=== PATIENT | male | born 1950 | race Caucasian/White ===

== ENCOUNTER 2017-08-30 08:58 | Emergency (ER) | payer MEDICARE, BC ==
--- NOTE | 2017-08-30 09:40 | RAD ---
Right wrist, 3 views, 08/30/2017: History: Fall, pain There is a comminuted fracture of the distal right radius with intra-articular extension. There is impaction at the fracture site with mild volar displacement of a moderate-sized distal fracture fragment. The carpal bones appear intact. No other fracture is identified. There is moderate soft tissue swelling. IMPRESSION: Comminuted, impacted distal radial fracture.
--- NOTE | 2017-08-30 09:40 | RAD ---
Right hand, 3 views, 08/30/2017: History: Fall, pain There is a distal radial fracture described on the wrist radiographs. No additional fracture or dislocation is identified.
[2017-08-30] MEDS ORDERED: DIPHTH,PERTUSS(ACELL),TET TOX 0.5 ML DISP.SYRIN. VAX IM ONE (10:00)
--- NOTE | 2017-08-30 10:00 | PHYS DOC ---
General Chief Complaint: WRIST PAIN Stated Complaint: FALL Time Seen by MD: 09:10 Source: patient Exam Limitations: no limitations Problems: History of Present Illness Initial Comments Patient is a 67-year-old male who comes complaining of fall injury. Patient states immediately prior to arrival she slipped on the ice and fell to his outstretched right hand which is his dominant hand. He states that he felt severe pain and has been unable to move his wrist he does have full movement of his fingers and a superficial abrasion at the medial aspect of his fifth phalanx. Tetanus status is not up-to-date he denies numbness tingling weakness or radiating symptoms in the extremity. He did refuse pain medications in the emergency department so he could preserve his ability to drive upon discharge. He denies other injuries suffered from the fall specifically no head injury headache neck pain or loss of consciousness Occurred: just prior to arrival Severity: severe Injuries/Pain Location: upper extremity Context: slipped Loss of Consciousness: no loss of consciousness Modifying Factors: worse with jarring, worse with movement, improves with rest Associated Symptoms: other Allergies: Coded Allergies: milk (Verified Allergy, Unknown, 08/30/17) Past Medical History Medical History: heart disease Surgical History: other (cardiac stent) Social History Smoker: non-smoker Alcohol: none Drugs: none Review of Systems Constitutional: no symptoms reported Eyes: no symptoms reported Respiratory: no symptoms reported Cardiovascular: no symptoms reported Musculoskeletal: see HPI Skin: see HPI Psychiatric/Neurological: see HPI Physical Exam General Appearance: WD/WN, no apparent distress Head: no evidence of injury Ears, Nose, Mouth, Throat: hearing grossly normal, no evidence of ENT injury, no dental injury Neck: non-tender, full range of motion Cardiovascular/Respiratory: normal peripheral pulses, no respiratory distress Back: no CVA tenderness, no vertebral tenderness Extremities: other (right wrist is swollen with exquisite bony tenderness and obvious deformity, pulses are intact and the patient has full range of motion with all fingers range of motion at the wrist not attempted due to obvious fracture. There is a superficial abrasion at the medial aspect of the right phalanx) Neurologic/Psychiatric: hospice/home health aide II-XII nml as tested, no motor/sensory deficits, alert, normal mood/affect, oriented x 3 Skin: warm/dry [place] Coma Score Best Eye Response: (4) open spontaneously Best Verbal Response: (5) oriented Best Motor Response: (6) obeys commands [place] Total: 15 Orders, Labs, Meds 0945: I discussed the patient with on-call orthopedic surgeon Dr. Pang. After review the films and the knowledge that it is his dominant hand it is her feeling that the patient will need surgery. She is in the clinic for a half day today and agrees to see the patient if he can be to her office by 11:30 AM. I got off the phone with Dr. Pang and called her paleontology teacher and advised them that the patient would be coming and would arrive by 11:30 AM, if there was an issue with him getting there on time I gave her the patient's full demographics including first and last name date of as well as his cell phone # [phone] that she could call and reschedule with him. Dr. Pang did request a sugar tong splint be placed ending at the MCP joints to preserve range of motion of the phalanges. The patient is agreeable and will have a family member drive him, he continues to refuse pain medications. Impressions: Comminuted impacted distal right radius fracture Fall injury Abrasion Tetanus status needs to be addressed Departure Time of Disposition: 09:56 Disposition: 01 HOME, SELF-CARE Diagnosis: comminuted impacted R distal radius fracture, Fall Condition: STABLE Additional Instructions: As discussed take your discharge paperwork and drive directly to Dr. Pang' s office: [address] [place] [address] [address] Their office phone number is [phone]. Pick the option for scheduling an appointment to be able to speak with a live person if you have trouble getting air or find that he will be running late. Tetanus status was not addressed so patient would arrive in time for Dr. Pang's evaluation. Return to ED with new or changing symptoms. AMY HULL DO Aug 30, 2017 10:00
[2017-08-30 10:09] VITALS: BP 126/77
[2017-08-30] MEDS ORDERED: HYDR-971 PO (18:27)
== END 2017-08-30 10:09 | disposition home or self-care (01) ==
LOC: ER 08:58
DX: S52.501A Unspecified fracture of the lower end of right radius, initial encounter for closed fracture (principal); S60.416A Abrasion of right little finger, initial encounter; Z91.011 Allergy to milk products; W00.0XXA Fall on same level due to ice and snow, initial encounter; Y93.89 Activity, other specified; Y99.8 Other external cause status; Y92.89 Other specified places as the place of occurrence of the external cause
CPT/HCPCS: 29125; 73110; 73130; 99284

== ENCOUNTER → 2018-08-28 | Outpatient (CLI) | payer MEDICARE, BC ==
[~2018-08-28] MED LIST: HYDR-3165 PO
[2018-08-28 09:12] LABS: ALBUMIN/GLOBULIN RATIO 1.2 (1.0-1.7); CALCIUM 8.8 mg/dL (8.5-10.1); CREATININE 1.4 mg/dL (0.7-1.3); GFR 50.2; POTASSIUM 4.3 mmol/L (3.5-5.1); TOTAL BILIRUBIN 0.6 mg/dL (0.2-1.0); TOTAL PROTEIN 7.4 g/dL (6.4-8.2)
== END | disposition home or self-care (01) ==
LOC: LAB 08:00
PROVIDERS: ATTEND Internal Medicine Cardiovascular Disease
DX: E78.00 Pure hypercholesterolemia, unspecified (principal)
CPT/HCPCS: 36415; 80053; 80061

== ENCOUNTER 2021-07-01 17:11 | Inpatient (IN) | payer MEDICARE ==
[~2021-07-01] VITALS: Ht 180.3 cm; Wt 80.5 kg
[2021-07-01] MEDS ORDERED: DEXAMETHASONE SOD PHOS 10 MG/ML VIAL. IVP ONE (17:30)
--- NOTE | 2021-07-01 17:35 | EKG ---
[address] [address] Test Date: 2021-07-01 Test Time: 17:30:36 Pat Name: DEMI ANDINO Department: Room: Gender: M Business Info Consultant: MORRO : 1950 Requested By: GAYLA GRAHAM Order Number: [id number] Reading MD: Olegario Rudolph Measurements Intervals [place] Rate: 93 P: 0 AL: 150 QRS: -1 QRSD: 88 T: 28 QT: 336 QTc: 420 Interpretive Statements SINUS RHYTHM LEFTWARD AXIS QRS(T) CONTOUR ABNORMALITY CONSISTENT WITH INFERIOR INFARCT PROBABLY OLD ABNORMAL ECG Electronically Signed On 07-02-2021 7:14:00 BLOW MACHINE [employer] by Olegario Rudolph
[2021-07-01] MEDS ORDERED: IV NORMAL SALINE 500ML 500 ML IV ONE (18:00)
--- NOTE | 2021-07-01 18:03 | PHYS DOC ---
Past History Past Medical History: CAD, Hypertension, AL (GAYLA GRAHAM APRN) Past Surgical History: Angioplasty, Other (GAYLA GRAHAM APRN) Smoking: Quit Greater Than 1 Year Alcohol Use: None Drug Use: None (GAYLA GRAHAM APRN) General Adult EDM: Chief Complaint: FEVER HPI: HPI: Patient is a 71-year-old male that presents today with tremors, fever, and generalized body aches since Saturday. Patient states he started off on Saturday with fever and body aches he states that he has been treating his fever at home with Motrin and his fever has ranged anywhere from 99-101, he states that on Saturday he started having the slight right arm tremors and he presents today because his fever was unbroken with Motrin at home. Patient has not had his Covid vaccine. Patient denies being around anybody that is been sick as well (GAYLA GRAHAM APRN) Review of Systems: Review of Systems: Constitutional: fever or chills Eyes: Denies change in visual acuity HENT: Denies nasal congestion or sore throat Respiratory: cough; denies shortness of breath Cardiovascular: Denies chest pain or edema GI: Denies abdominal pain, nausea, vomiting, bloody stools or diarrhea : Denies dysuria Musculoskeletal: Generalized body aches Integument: Denies rash Neurologic: Denies headache, focal weakness or sensory changes Endocrine: Denies polyuria or polydipsia Lymphatic: Denies swollen glands Psychiatric: Denies depression or anxiety (GAYLA GRAHAM APRN) Current Medications: Current Meds: Current Medications Medications (Trade) Dose Ordered Sig/Neelam Start Time Stop Time Status Last Admin Dose Admin Dexamethasone Sodium Phosphate (Decadron) 10 mg 1X ONCE 07/01/21 17:30 07/01/21 17:36 DC (GAYLA GRAHAM APRN) Allergies: Allergies: Allergies Coded Allergies Type Severity Reaction Last Updated Verified milk Allergy Unknown 08/30/17 Yes (GAYLA GRAHAM APRN) Physical Exam: PE: Constitutional: Well developed, well nourished, moderate distress HENT: Normocephalic, atraumatic, bilateral external ears normal, oropharynx dry, no oral exudates, nose normal. [] Eyes: PERRLA, EOMI, conjunctiva normal, no discharge. [] Neck: Normal range of motion, no tenderness, supple, no stridor. [] Cardiovascular:Heart rate regular rhythm, no murmur [] Lungs & Thorax: Bilateral breath sounds clear to auscultation [] Abdomen: Bowel sounds normal, soft, no tenderness, no masses, no pulsatile masses. [] Skin: Warm, moist, no erythema, no rash. [] Back: No tenderness, no CVA tenderness. [] Extremities: No tenderness, no cyanosis, no clubbing, ROM intact, no edema. [] Neurologic: Alert and oriented X 3, normal motor function, normal sensory functi on, no focal deficits noted, slight tremor noted on the right arm and the right neck area Psychologic: Affect normal, judgement normal, mood normal. [] (GAYLA GRAHAM APRN) Current Patient Data: Labs: Laboratory Tests Test 07/01/21 17:53 07/01/21 17:58 White Blood Count 2.6 x10^3/uL Red Blood Count 4.20 x10^6/uL Hemoglobin 13.4 g/dL Hematocrit 40.7 % Mean Corpuscular Volume 97 fL Mean Corpuscular Hemoglobin 32 pg Mean Corpuscular Hemoglobin Concent 33 g/dL Red Cell Distribution Width 13.1 % Platelet Count 93 x10^3/uL Neutrophils (%) (Auto) 46 % Lymphocytes (%) (Auto) 45 % Monocytes (%) (Auto) 8 % Eosinophils (%) (Auto) 0 % Basophils (%) (Auto) 0 % Neutrophils # (Auto) 1.2 x10^3uL Lymphocytes # (Auto) 1.2 x10^3/uL Monocytes # (Auto) 0.2 x10^3/uL Eosinophils # (Auto) 0.0 x10^3/uL Basophils # (Auto) 0.0 x10^3/uL Sodium Level 144 mmol/L Potassium Level 4.2 mmol/L Chloride Level 108 mmol/L Carbon Dioxide Level 27 mmol/L Anion Gap 9 Blood Urea Nitrogen 26 mg/dL Creatinine 1.7 mg/dL Estimated GFR (Cockcroft-Gault) 39.8 BUN/Creatinine Ratio 15 Glucose Level 134 mg/dL Lactic Acid Level 0.8 mmol/L Calcium Level 8.1 mg/dL Total Bilirubin 0.3 mg/dL Aspartate Amino Transf (AST/SGOT) 45 U/L Alanine Aminotransferase (ALT/SGPT) 45 U/L Alkaline Phosphatase 69 U/L Total Protein 6.6 g/dL Albumin 3.4 g/dL Albumin/Globulin Ratio 1.1 Influenza Type A (Rapid) Negative Influenza Type B (Rapid) Negative SARS-CoV-2 Antigen (Rapid) Positive Current Medications Medications (Trade) Dose Ordered Sig/Neelam Route PRN Reason Start Time Stop Time Status Last Admin Dose Admin Dexamethasone Sodium Phosphate (Decadron) 10 mg 1X ONCE IVP 07/01/21 17:30 07/01/21 17:36 DC 07/01/21 18:06 Sodium Chloride 500 ml @ 0 mls/hr 1X ONCE IV 07/01/21 18:00 07/01/21 18:01 DC 07/01/21 18:06 (GAYLA GRAHAM APRN) EKG: EKG: EKG done at [address] Jones at 1732 patient has sinus rhythm noted on his EKG old inferior infarct noted NH interval is 150 ms with a QTC interval of 336 ms no STEMI noted [] (GAYLA GRAHAM CHICKEN HATCHERY HELPER) Radiology/Procedures: Radiology/Procedures: REASON: Fever and SOA PROCEDURE: CHEST AP ONLY AP chest. HISTORY: Fever, short of air AP view was taken of the chest. There is no pleural effusion. There are no confluent infiltrates. Heart is normal in size. IMPRESSION: 1. No acute infiltrates. Electronically signed by: Placido Cooney MD (07/01/2021 6:13 PM) [facility] [] (GAYLA GRAHAM CHICKEN HATCHERY HELPER) Heart Score: C/O Chest Pain: N/A Risk Factors: Risk Factors: DM, Current or recent (<one month) smoker, HTN, HLP, family history of CAD, obesity. Risk Scores: Score 0 - 3: 2.5% MACE over next 6 weeks - Discharge Home Score 4 - 6: 20.3% MACE over next 6 weeks - Admit for Clinical Observation Score 7 - 10: 72.7% MACE over next 6 weeks - Early Invasive Strategies (GAYLA GRAHAM APRN) Course & Med Decision Making: Course & Med Decision Making Pertinent Labs and Imaging studies reviewed. (See chart for details) [address] Jacobson regarding this patient he is agreeable to admission, will orderRemdesivir per Dr. Espino's recommendations. Patient is agreeable to plan (GAYLA GRAHAM APRN) Dragon Disclaimer: Dragon Disclaimer: This electronic medical record was generated, in whole or in part, using a voice recognition dictation system. (GAYLA GRAHAM APRN) Departure Departure: Impression: Primary Impression: Respiratory distress, acute Additional Impression: COVID-19 Disposition: ADMITTED INPATIENT Condition: GUARDED Referrals: PIYUSH MONGE MD (PCP) Scripts Methylprednisolone (MEDROL) 4 Mg Tab.ds.pk 1 PKG PO UD for sob, #1 PKG Prov: PIYUSH MONGE MD 07/06/21 Dragon Disclaimer This chart was dictated in whole or in part using Voice Recognition software in a busy, high-work load, and often noisy Emergency Department environment. It may contain unintended and wholly unrecognized errors or omissions. (SCOTT JO MD) Dragon Disclaimer This chart was dictated in whole or in part using Voice Recognition software in a busy, high-work load, and often noisy Emergency Department environment. It may contain unintended and wholly unrecognized errors or omissions. (GAYLA GRAHAM APRN) Dragon Disclaimer This chart was dictated in whole or in part using Voice Recognition software in a busy, high-work load, and often noisy Emergency Department environment. It may contain unintended and wholly unrecognized errors or omissions. (SCOTT JO MD) Dragon Disclaimer This chart was dictated in whole or in part using Voice Recognition software in a busy, high-work load, and often noisy Emergency Department environment. It may contain unintended and wholly unrecognized errors or omissions. (GAYLA GRAHAM APRN) Dragon Disclaimer This chart was dictated in whole or in part using Voice Recognition software in a busy, high-work load, and often noisy Emergency Department environment. It may contain unintended and wholly unrecognized errors or omissions. (SCOTT JO MD) Dragon Disclaimer This chart was dictated in whole or in part using Voice Recognition software in a busy, high-work load, and often noisy Emergency Department environment. It may contain unintended and wholly unrecognized errors or omissions. (GAYLA GRAHAM APRN) Attending Signature Attending Signature I have participated in the care of this patient and I have reviewed and agree with all pertinent clinical information above including history, exam, and recommendations. (SCOTT JO MD) Attending Signature I have participated in the care of this patient and I have reviewed and agree with all pertinent clinical information above including history, exam, and recommendations. (GAYLA GRAHAM APRN) GAYLA GRAHAM APRN Jul 01, 2021 18:02 SCOTT JO MD Jul 02, 2021 21:25
--- NOTE | 2021-07-01 18:15 | RAD ---
AP chest. HISTORY: Fever, short of air AP view was taken of the chest. There is no pleural effusion. There are no confluent infiltrates. Hea rt is normal in size. IMPRESSION: 1. No acute infiltrates. Electronically signed by: Placido Cooney MD (07/01/2021 6:13 PM) [facility]
[2021-07-01 18:25] LABS: BASO % 0 % (0-3); EOS % 0 % (0-3); HEMATOCRIT 40.7 % (39.0-53.0); HEMOGLOBIN 13.4 g/dL (13.0-17.5); LYMPH # 1.2 x10^3/uL (1.0-4.8); LYMPH % 45 % (24-48); MEAN CORPUSCULAR HEMOGLOBIN 32 pg (25-35); MEAN CORPUSCULAR HGB CONC 33 g/dL (31-37); MEAN CORPUSCULAR VOLUME 97 fL (79-100); MONO # 0.2 x10^3/uL (0.0-1.1); MONO % 8 % (0-9); NEUT # 1.2 x10^3uL (1.8-7.7); NEUT % 46 % (31-73); PLATELET COUNT 93 x10^3/uL (140-400); RED CELL DISTRIBUTION WIDTH 13.1 % (11.5-14.5); WHITE BLOOD COUNT 2.6 x10^3/uL (4.0-11.0)
[2021-07-01 18:39] LABS: CALCIUM 8.1 mg/dL (8.5-10.1); CREATININE 1.7 mg/dL (0.7-1.3); GFR 39.8; POTASSIUM 4.2 mmol/L (3.5-5.1)
[2021-07-01 18:44] LABS: ALBUMIN 3.4 g/dL (3.4-5.0); ALBUMIN/GLOBULIN RATIO 1.1 (1.0-1.7); TOTAL BILIRUBIN 0.3 mg/dL (0.2-1.0); TOTAL PROTEIN 6.6 g/dL (6.4-8.2)
[2021-07-01 18:45] LABS: INFLUENZA A PATIENT NEGATIVE (NEGATIVE); INFLUENZA B PATIENT NEGATIVE (NEGATIVE)
[2021-07-01] MEDS ORDERED: ONDANSETRON PF 4 MG/2 ML VIAL. IVP PRN (19:30)
[2021-07-01] MEDS ORDERED: ACETAMINOPHEN 325 MG TABLET PO PRN (19:30)
[2021-07-01 20:30] VITALS: BP 116/69
[2021-07-01] MEDS ORDERED: CARV6.253 PO (21:01)
[2021-07-01] MEDS ORDERED: ASPI-889 PO (21:01)
[2021-07-01] MEDS ORDERED: LISI2.5T12 PO (21:01)
[2021-07-01] MEDS ORDERED: ROSU20TA28 PO (21:01)
[2021-07-01] MEDS ORDERED: ACETAMINOPHEN 500 MG TABLET PO PRN (21:15)
[2021-07-01] MEDS ORDERED: IBUPROFEN 600 MG TABLET. PO PRN (21:15)
[2021-07-01] MEDS ORDERED: AZITHROMYCIN 500 MG in IV NORMAL SALINE 250ML 250 ML IV ONE (22:00)
[2021-07-02 00:15] VITALS: BP 128/74
[2021-07-02 06:15] VITALS: BP 122/77
[2021-07-02 07:40] LABS: ALBUMIN/GLOBULIN RATIO 0.8 (1.0-1.7); CALCIUM 7.6 mg/dL (8.5-10.1); CREATININE 1.3 mg/dL (0.7-1.3); GFR 54.3; POTASSIUM 4.1 mmol/L (3.5-5.1); TOTAL BILIRUBIN 0.3 mg/dL (0.2-1.0); TOTAL PROTEIN 6.7 g/dL (6.4-8.2)
[2021-07-02] MEDS: AZITHROMYCIN 250 MG TABLET. PO SCH (08:06)
[2021-07-02] MEDS: LISINOPRIL 5 MG TABLET. PO SCH (08:06)
[2021-07-02] MEDS: ASPIRIN ENTERIC COATED 81 MG TABLET.DR. PO SCH (08:06)
[2021-07-02] MEDS: DEXAMETHASONE SOD PHOS 4 MG/ML VIAL. IVP SCH (08:07)
[2021-07-02 11:52] VITALS: BP 114/66
[2021-07-02] MEDS ORDERED: REMDESIVIR LOAD in IV NORMAL SALINE 250ML TV IV ONE (13:00)
[2021-07-02 16:03] VITALS: BP 112/63
--- NOTE | 2021-07-02 18:23 | HP ---
DATE OF SERVICE: 07/02/2021 ADMIT DATE: 07/01/2021 HISTORY OF PRESENT ILLNESS: A 71-year-old male who for the past 4-5 days has been feeling ill, noting that he has been having this temperature for 2-3 days, finally came in through the Emergency Room and was spiking temperatures up to 102. His situation demonstrated that the patient had a problem with a positive COVID test and he was admitted for a COVID infection. He did drop down into the upper 80s on room air and started on remdesivir, Decadron and some Lovenox. He was admitted for acute respiratory failure secondary to COVID-19. PAST MEDICAL HISTORY: Includes that of tonsillectomy, heart attack, hypertension, history of smoking. Pneumococcal vaccination has been refused. He also refused COVID vaccination. FAMILY HISTORY: Positive for suicide. ALLERGIES: ADVERSE REACTION TO MILK. SOCIAL HISTORY: The patient has a [id number] history of smoking and occasional alcohol use. The patient, however, denies hard drug use. The patient is a FULL CODE. REVIEW OF SYSTEMS: The patient denies any headaches, visual changes, blurred vision, double vision. Denies any melena, hematochezia or hematemesis and neurologically baseline for him. He does have some shortness of breath, however, and of course has fever and chills as indicated. The patient denies any problem with bowels or bladder. PHYSICAL EXAMINATION: GENERAL: A pleasant white male, in moderate amount of distress. VITAL SIGNS: Blood pressure is that of 128/70, respiratory rate 36, pulse 90, temperature, presently he was up to 99.1; 88 on room air, 2 liters at 91; temperature as indicated. HEENT: The patient's head was atraumatic, normocephalic. Eyes: PERRLA without jaundice. The mouth and throat were normal. NECK: Supple without JVD or thyromegaly. LUNGS: Diminished throughout, poor movement of air. CARDIOVASCULAR: Regular sinus rhythm, S1, S2, without murmur, rub, thrill, or extra heart sounds. ABDOMEN: Soft, nontender, no rebounding or guarding. Positive bowel sounds. No hepatosplenomegaly was noted. EXTREMITIES: Without clubbing, cyanosis, nor edema. NEUROLOGIC: The patient was alert and oriented x 3. Speech fluent, spontaneous, appropriate. Cranial nerves 2-12 grossly intact. The patient said he has been feeling better since he got the remdesivir, Zithromax and Lovenox. LABORATORY DATA: Demonstrated the positive SARS. White count down to 2.6, hemoglobin and hematocrit 13 and 40. Chemistries, 138, 4.1, BUN and creatinine 22 and 1.3, improved from 26 and 1.7, protein down to 3. DIAGNOSTIC DATA: Chest x-ray was unremarkable. IMPRESSION AND PLAN: Acute respiratory failure secondary to SARS COVID-19, tobacco abuse, acute renal failure 3B, moderate protein malnutrition. The patient will continue on present drug regimen as discussed above and will be monitored carefully. Make further evaluation on him per those results and will make adjustments accordingly. IFRAH DR: AURORA/ligia TID: [id number]
[2021-07-02 19:00] VITALS: BP 118/69
[2021-07-02] MEDS: CARVEDILOL 6.25 MG TABLET PO SCH (21:34)
[2021-07-02] MEDS: ATORVASTATIN CALCIUM 20 MG TABLET PO SCH (21:35)
[2021-07-02] MEDS: ENOXAPARIN 30 MG/0.3 ML SYRINGE. SQ SCH (21:35)
[2021-07-02 23:36] VITALS: BP 122/64
[2021-07-03 05:51] VITALS: BP 131/77
[2021-07-03] MEDS: DEXAMETHASONE SOD PHOS 4 MG/ML VIAL. IVP SCH (08:01)
[2021-07-03] MEDS: AZITHROMYCIN 250 MG TABLET. PO SCH (08:02)
[2021-07-03] MEDS: ENOXAPARIN 30 MG/0.3 ML SYRINGE. SQ SCH (08:02)
[2021-07-03] MEDS: ASPIRIN ENTERIC COATED 81 MG TABLET.DR. PO SCH (08:02)
[2021-07-03] MEDS: LISINOPRIL 5 MG TABLET. PO SCH (08:04)
[2021-07-03 10:45] VITALS: BP 130/75
--- NOTE | 2021-07-03 11:18 | PN ---
DATE: 07/03/2021 SUBJECTIVE: A 71-year-old gentleman in with COVID-19 pneumonia. The patient is doing somewhat better. Says he feels a little bit stronger. The patient is breathing a little bit easier, still on oxygen, remdesivir treatments. OBJECTIVE: VITAL SIGNS: The patient's blood pressure 130/70, respiratory rate 18, pulse 70, afebrile, 2.5 liters of nasal cannula at 94. GENERAL: The patient otherwise alert and oriented. LUNGS: Diminished throughout, but moving along fairly well. CARDIOVASCULAR: Regular sinus rhythm. ABDOMEN: Soft, nontender, no rebound or guarding. Positive bowel sounds, no hepatosplenomegaly. The patient is making good progress overall and continued to be monitored carefully on his situation here. Otherwise, he continues to make good progress on the situation with his COVID-19 pneumonia. IMPRESSION: COVID-19 pneumonia, acute respiratory failure. Continue on present drug regimen. Acute renal failure, stage IIIB. Moderate protein malnutrition. PLAN: We will continue present drug regimen and make adjustments accordingly. BURAK DR: Megan TID: [id number]
[2021-07-03 12:38] LABS: BASO % 0 % (0-3); EOS % 0 % (0-3); HEMATOCRIT 40.7 % (39.0-53.0); HEMOGLOBIN 13.6 g/dL (13.0-17.5); LYMPH % 20 % (24-48); MEAN CORPUSCULAR HEMOGLOBIN 32 pg (25-35); MEAN CORPUSCULAR HGB CONC 33 g/dL (31-37); MEAN CORPUSCULAR VOLUME 96 fL (79-100); MONO # 0.2 x10^3/uL (0.0-1.1); MONO % 4 % (0-9); NEUT # 3.9 x10^3uL (1.8-7.7); NEUT % 75 % (31-73); PLATELET COUNT 97 x10^3/uL (140-400); RED BLOOD COUNT 4.26 x10^6/uL (4.30-5.70); RED CELL DISTRIBUTION WIDTH 13.3 % (11.5-14.5); WHITE BLOOD COUNT 5.2 x10^3/uL (4.0-11.0)
[2021-07-03] MEDS: REMDESIVIR 100mg in NORMAL SALINE 250ML X 4 DAYS IV SCH (13:34)
[2021-07-03 14:38] VITALS: BP 133/73
[2021-07-03 19:00] VITALS: BP 128/75
[2021-07-03] MEDS: ZOLPIDEM 5 MG TABLET. PO PRN (21:00)
[2021-07-03] MEDS: ATORVASTATIN CALCIUM 20 MG TABLET PO SCH (21:00)
[2021-07-03] MEDS: CARVEDILOL 6.25 MG TABLET PO SCH (21:00)
[2021-07-03 23:00] VITALS: BP 149/72
[2021-07-04 05:00] VITALS: BP 120/77
[2021-07-04] MEDS: DEXAMETHASONE SOD PHOS 4 MG/ML VIAL. IVP SCH (08:32)
[2021-07-04] MEDS: ENOXAPARIN 40 MG/0.4 ML SYRINGE. SQ SCH (08:32)
[2021-07-04] MEDS: AZITHROMYCIN 250 MG TABLET. PO SCH (08:33)
[2021-07-04] MEDS: LISINOPRIL 5 MG TABLET. PO SCH (08:34)
[2021-07-04] MEDS: ASPIRIN ENTERIC COATED 81 MG TABLET.DR. PO SCH (08:34)
[2021-07-04] MEDS: LACTOBACILLUS RHAMNOSUS GG 1 CAPSULE. PO SCH ×2 (08:36→20:19)
[2021-07-04 10:50] VITALS: BP 101/70
--- NOTE | 2021-07-04 11:14 | PN ---
DATE: 07/04/2021 SUBJECTIVE: The patient in with [id number] pneumonia as well as acute respiratory failure. He is doing a little better this morning. Still feels a little bit weak. Still requiring oxygen. Still receiving remdesivir and Lovenox, Decadron. The patient's lungs sound basically fairly clear. He is still fairly weak. OBJECTIVE: VITAL SIGNS: Blood pressure 120/70, respiratory rate 18, pulse 70, afebrile, 3 liters at 95. GENERAL: The patient otherwise as noted. LUNGS: Clear. CARDIOVASCULAR: Stable. ABDOMEN: Soft. EXTREMITIES: No clubbing, cyanosis or edema. NEUROLOGIC: The patient is alert and oriented. Speech fluent, spontaneous, appropriate. He is making good progress. Still weak. Still needs some rehabilitation. We will try to get physical therapy on with him to continue his rehabilitation and make further assessment for him to rebuild his strength post this significant infection. IMPRESSION: Therefore, COVID-19 pneumonia, acute respiratory failure, tobacco abuse, acute renal failure 3B, moderate protein malnutrition. PLAN: Continue medications as noted above. Also, continue with physical therapy. AURORA/TAB DR: AURORA/ligia TID: [id number]
[2021-07-04] MEDS: REMDESIVIR 100mg in NORMAL SALINE 250ML X 4 DAYS IV SCH (12:43)
[2021-07-04 14:40] VITALS: BP 132/76
[2021-07-04 18:25] VITALS: BP 125/72
[2021-07-04] MEDS: CARVEDILOL 6.25 MG TABLET PO SCH (20:19)
[2021-07-04] MEDS: ATORVASTATIN CALCIUM 20 MG TABLET PO SCH (20:19)
[2021-07-04] MEDS: ZOLPIDEM 5 MG TABLET. PO PRN (20:19)
[2021-07-04 23:04] VITALS: BP 121/75
[2021-07-05 05:03] VITALS: BP 128/74
[2021-07-05 06:05] LABS: BASO % 0 % (0-3); EOS % 0 % (0-3); HEMATOCRIT 41.6 % (39.0-53.0); LYMPH # 1.2 x10^3/uL (1.0-4.8); LYMPH % 23 % (24-48); MEAN CORPUSCULAR HEMOGLOBIN 32 pg (25-35); MEAN CORPUSCULAR HGB CONC 34 g/dL (31-37); MEAN CORPUSCULAR VOLUME 95 fL (79-100); MONO # 0.5 x10^3/uL (0.0-1.1); MONO % 10 % (0-9); NEUT # 3.4 x10^3uL (1.8-7.7); NEUT % 67 % (31-73); PLATELET COUNT 107 x10^3/uL (140-400); RED CELL DISTRIBUTION WIDTH 13.2 % (11.5-14.5); WHITE BLOOD COUNT 5.1 x10^3/uL (4.0-11.0)
[2021-07-05 06:17] LABS: ALBUMIN 2.9 g/dL (3.4-5.0); ALBUMIN/GLOBULIN RATIO 0.8 (1.0-1.7); CALCIUM 7.9 mg/dL (8.5-10.1); CREATININE 1.1 mg/dL (0.7-1.3); GFR 65.8; POTASSIUM 3.9 mmol/L (3.5-5.1); TOTAL BILIRUBIN 0.6 mg/dL (0.2-1.0); TOTAL PROTEIN 6.5 g/dL (6.4-8.2)
[2021-07-05] MEDS: DEXAMETHASONE SOD PHOS 4 MG/ML VIAL. IVP SCH (09:25)
[2021-07-05] MEDS: ASPIRIN ENTERIC COATED 81 MG TABLET.DR. PO SCH (09:27)
[2021-07-05] MEDS: LACTOBACILLUS RHAMNOSUS GG 1 CAPSULE. PO SCH ×2 (09:27→20:42)
[2021-07-05] MEDS: AZITHROMYCIN 250 MG TABLET. PO SCH (09:27)
[2021-07-05] MEDS: ENOXAPARIN 40 MG/0.4 ML SYRINGE. SQ SCH (09:29)
[2021-07-05] MEDS: LISINOPRIL 5 MG TABLET. PO SCH (09:29)
--- NOTE | 2021-07-05 11:43 | DISCH ---
HOME HEALTH DISCHARGE/MEDS DISCHARGE INFORMATION: Discharge Date: Jul 06, 2021 Final Diagnosis: Problems Medical Problems: (1) COVID-19 Status: Acute (2) Respiratory distress, acute Status: Acute CODE STATUS: Code Status: Full HOME HEALTH: Face to Face: I certify this patient is under my care and that I, or a nurse practitioner or physician's editorial assistant working with me, had a face to face encounter that meets the physician face to face encounter requirements with this patient on July 05, 2021. Medical Condition(s): Pneumonia Longterm For: Assess Cardiopulm Status, Assess & Educate Safety, Assess/Skilled Observatio Homebound Status Met By: Fatigue w/ amb. POST DISCHARGE ORDERS: DIET AFTER DISCHARGE: Cardiac TREATMENT/EQUIPMENT ORDERS: Discharge Respiratory Equipmen: Oxygen (Requiring 5 Liters with exertion. [employer] company: [employer] ) CERTIFICATION STATEMENT: Certification Statement: Based on the above finding, I certify that this patient is confined to the home and needs intermittent senior care care, physical therapy and/or speech therapy, or continues to need occupational therapy.~ This patient is under my care, and I have initiated the establishment of the plan of care.~ This patient will be followed by myself or a community physician who will periodically review the plan of care. DISCHARGE MEDICATIONS: Home Meds Active Scripts Hydrocodone Bit/Acetaminophen (NORCO 5-325 TABLET) 1 Each Tablet, 1-2 TAB PO PRN Q4-6HRS PRN for PAIN, #20 TAB 0 Refills Prov:SANDEEP HULL DO 08/30/17 Reported Medications Aspirin (ASPIRIN EC) 81 Mg Tablet., 1 TAB PO DAILY for DVT PROPH, #30 TAB 3 Refills 07/01/21 Lisinopril (LISINOPRIL) 2.5 Mg Tablet, 1 TAB PO DAILY for HYPERTENSION 07/01/21 Rosuvastatin Calcium (Rosuvastatin Calcium) 20 Mg Tablet, 1 TAB PO QHS for HYPERLIPIDEMIA 07/01/21 Carvedilol (Carvedilol) 6.25 Mg Tablet, 1 PO QHS for HYPERTENSION 07/01/21 Info (NO KNOWN MEDICATIONS PRIOR TO ADMISSTION) Each, 1 EACH , EACH 06/15/14 PIYUSH MONGE MD Jul 05, 2021 11:43
[2021-07-05] MEDS: REMDESIVIR 100mg in NORMAL SALINE 250ML X 4 DAYS IV SCH (13:38)
--- NOTE | 2021-07-05 15:22 | PN ---
SUBJECTIVE: The patient in for COVID-19 pneumonia. The patient is doing relatively well, although with exertion, he becomes increasingly fatigued. Apparently failed his 6-minute walk and requires oxygen. He is only at 91% on 2.5 liters. When I saw him, the patient was extremely fatigued from having done some physical therapy; and by sitting up in the bed, he became extremely gasping for air. The patient otherwise says he feels a little better, still weak as noted, you could see in his face and in his affect. OBJECTIVE: LUNGS: Diminished throughout, poor movement of air, but better than they have been. CARDIOVASCULAR: Stable. VITAL SIGNS: Blood pressure 128/74, respiratory rate 18, pulse 76, afebrile. HEENT: The patient's head was atraumatic, normocephalic. Eyes: PERRL. ABDOMEN: Soft, nontender. EXTREMITIES: No clubbing, cyanosis, or edema. NEUROLOGIC: Stable. IMPRESSION: COVID-19 pneumonia; acute respiratory failure; hypoxia; tobacco abuse; acute renal failure, type IIIB; moderate protein malnutrition. PLAN: The patient will continue to be monitored carefully, make further evaluation on him as indicated per those results. AURORA/HARJIT DR: Megan TID: [id number]
[2021-07-05 16:17] VITALS: BP 135/76
[2021-07-05 18:57] VITALS: BP 114/50
[2021-07-05] MEDS: CARVEDILOL 6.25 MG TABLET PO SCH (20:42)
[2021-07-05] MEDS: ZOLPIDEM 5 MG TABLET. PO PRN (20:42)
[2021-07-05] MEDS: ATORVASTATIN CALCIUM 20 MG TABLET PO SCH (20:43)
[2021-07-06 05:00] VITALS: BP 117/68
[2021-07-06] MEDS: LACTOBACILLUS RHAMNOSUS GG 1 CAPSULE. PO SCH (08:05)
[2021-07-06] MEDS: ASPIRIN ENTERIC COATED 81 MG TABLET.DR. PO SCH (08:05)
[2021-07-06] MEDS: DEXAMETHASONE SOD PHOS 4 MG/ML VIAL. IVP SCH (08:06)
[2021-07-06] MEDS: LISINOPRIL 5 MG TABLET. PO SCH (08:06)
[2021-07-06] MEDS: ENOXAPARIN 40 MG/0.4 ML SYRINGE. SQ SCH (08:06)
[2021-07-06 11:31] VITALS: BP 135/84
[2021-07-06] MEDS ORDERED: METH4TAB2 PO (11:43)
[2021-07-06] MEDS: REMDESIVIR 100mg in NORMAL SALINE 250ML X 4 DAYS IV SCH (12:00)
== END 2021-07-06 13:25 | disposition home health service (06) | DRG 177 ==
LOC: ER 17:11 → 1 SOUTH 19:18 → ER 19:50
PROVIDERS: ADMIT Family Medicine; ATTEND Family Medicine
PROC: XW033E5 Introduction of Remdesivir Anti-infective into Peripheral Vein, Percutaneous Approach, New Technology Group 5 (ICD-10-PCS; principal; 2021-07-02)
DX: U07.1 COVID-19 (principal); J12.82 Pneumonia due to coronavirus disease 2019; J96.01 Acute respiratory failure with hypoxia; N17.9 Acute kidney failure, unspecified; E44.0 Moderate protein-calorie malnutrition; N18.32 Chronic kidney disease, stage 3b; I12.9 Hypertensive chronic kidney disease with stage 1 through stage 4 chronic kidney disease, or unspecified chronic kidney disease; I25.10 Atherosclerotic heart disease of native coronary artery without angina pectoris; I25.2 Old myocardial infarction; Z72.0 Tobacco use; Z91.011 Allergy to milk products; Z68.24 Body mass index [BMI] 24.0-24.9, adult
CPT/HCPCS: 36415; 71045; 80053; 83605; 85025; 87040; 87426; 87804; 93005; 94618; 96361; 96374; J0456; J1100; J1650; J7040; J7050; 97530; 99285-25

== ENCOUNTER 2021-07-08 13:49 | Inpatient (IN) | payer MEDICARE ==
[~2021-07-08] VITALS: Ht 180.3 cm; Wt 80.1 kg
[~2021-07-08 13:49] MED LIST changes: +ASPI-889 PO; +CARV6.253 PO; +LISI2.5T12 PO; +METH4TAB2 PO; +ROSU20TA28 PO
--- NOTE | 2021-07-08 14:09 | PHYS DOC ---
Past History Past Medical History: CAD, Hypertension, IA Past Surgical History: Angioplasty, Other Additional Past Surgical Histo: stent Smoking: Quit Greater Than 1 Year Alcohol Use: None Drug Use: None General Adult EDM: Chief Complaint: SHORTNESS OF BREATH HPI: HPI: Patient is a 71-year-old male coming in for fever and body aches. Patient was discharged from the hospital 2 days ago with COVID-19, tested positive for days ago. Patient states he was sent home with some pills and oxygen but is not sure if he has been taking his pills correctly or using his oxygen correctly. Review of Systems: Review of Systems: All other systems within normal limits except for as noted in the HPI Allergies: Allergies: Allergies Coded Allergies Type Severity Reaction Last Updated Verified milk Allergy Unknown 08/30/17 Yes Physical Exam: PE: Constitutional: Well developed, well nourished, no acute distress, non-toxic appearance. [] HENT: Normocephalic, atraumatic, bilateral external ears normal, nose normal. [] Eyes: PERRLA, conjunctiva normal, no discharge. [] Neck: No rigidity, supple, no stridor. [] Cardiovascular: Regular rate and rhythm, brisk cap refill [] Lungs & Thorax: Non labored symmetric respirations, mild tachypnea, O2 sats 85 on 5 L nasal cannula Abdomen: Soft, nondistended. Skin: Warm, dry, no erythema, no rash. [] Back: Unremarkable Extremities: No deformities, range of motion grossly intact, no lower extremity edema [] Neurologic: Alert and oriented X 3, no focal deficits noted. [] Psychologic: Affect normal, judgement normal, mood normal. [] EKG: EKG: [] Sinus rhythm, heart rate 90 beats minute, no ST elevation or depression, no ectopy. Radiology/Procedures: Radiology/Procedures: [address] [address] IMAGING REPORT Signed PATIENT: DEMI ANDINO ACCOUNT: [id number] : 1950 LOCATION: ER AGE: 71 SEX: M EXAM STATUS: REG ER ORD. PHYSICIAN: GARDENIA CAPPS MD REASON: covid PROCEDURE: CHEST AP ONLY EXAM: Chest, single view. HISTORY: Covid 19. COMPARISON: 07/01/2021 FINDINGS: A frontal view of the chest is obtained. There is multifocal right greater than left lung interstitial and alveolar infiltrate. No pleural effusion or pneumothorax is seen. There is a stable cardiac silhouette. IMPRESSION: Multifocal right greater than left lung interstitial and alveolar infiltrate. Electronically signed by: Gena Reilly MD (07/08/2021 2:26 PM) [id number] DICTATED AND SIGNED BY: GENA REILLY MD DATE: 07/08/21 1425 CC: GARDENIA CAPPS MD; PIYUSH MONGE MD ~MTH0 0 [] Heart Score: C/O Chest Pain: No Risk Factors: Risk Factors: DM, Current or recent (<one month) smoker, HTN, HLP, family history of CAD, obesity. Risk Scores: Score 0 - 3: 2.5% MACE over next 6 weeks - Discharge Home Score 4 - 6: 20.3% MACE over next 6 weeks - Admit for Clinical Observation Score 7 - 10: 72.7% MACE over next 6 weeks - Early Invasive Strategies Course & Med Decision Making: Course & Med Decision Making Pertinent Labs and Imaging studies reviewed. (See chart for details) [] Discussed case with Dr. Monge, patient's primary care provider, will readmit for worsening Covid symptoms and possible pneumonia Dragon Disclaimer: Nicole Disclaimer: This electronic medical record was generated, in whole or in part, using a voice recognition dictation system. Departure Departure: Impression: Primary Impression: Pneumonia due to 2019 novel coronavirus Disposition: ADMITTED INPATIENT Admitting Physician: Piyush Monge Condition: STABLE Referrals: PIYUSH MONGE MD (PCP) GARDENIA CAPPS MD Jul 08, 2021 14:09
[2021-07-08] MEDS ORDERED: IV NORMAL SALINE 500ML 500 ML IV ONE (14:15)
[2021-07-08] MEDS ORDERED: ACETAMINOPHEN 500 MG TABLET PO ONE (14:15)
[2021-07-08 14:19] LABS: BASO % 0 % (0-3); EOS % 0 % (0-3); HEMATOCRIT 44.5 % (39.0-53.0); HEMOGLOBIN 14.7 g/dL (13.0-17.5); LYMPH # 0.8 x10^3/uL (1.0-4.8); LYMPH % 6 % (24-48); MEAN CORPUSCULAR HEMOGLOBIN 31 pg (25-35); MEAN CORPUSCULAR HGB CONC 33 g/dL (31-37); MEAN CORPUSCULAR VOLUME 95 fL (79-100); MONO # 0.8 x10^3/uL (0.0-1.1); MONO % 6 % (0-9); NEUT # 11.5 x10^3uL (1.8-7.7); NEUT % 87 % (31-73); PLATELET COUNT 203 x10^3/uL (140-400); RED BLOOD COUNT 4.69 x10^6/uL (4.30-5.70); RED CELL DISTRIBUTION WIDTH 13.5 % (11.5-14.5); WHITE BLOOD COUNT 13.1 x10^3/uL (4.0-11.0)
--- NOTE | 2021-07-08 14:28 | RAD ---
EXAM: Chest, single view. HISTORY: Covid 19. COMPARISON: 07/01/2021 FINDINGS: A frontal view of the chest is obtained. There is multifocal right greater than left lung i nterstitial and alveolar infiltrate. No pleural effusion or pneumothorax is seen. There is a stable c ardiac silhouette. IMPRESSION: Multifocal right greater than left lung interstitial and alveolar infiltrate. Electronically signed by: Gena Stark MD (07/08/2021 2:26 PM) [id number]
[2021-07-08] MEDS ORDERED: DEXAMETHASONE SOD PHOS 10 MG/ML VIAL. IVP ONE (14:30)
[2021-07-08 14:53] LABS: INFLUENZA A PATIENT NEGATIVE (NEGATIVE); INFLUENZA B PATIENT NEGATIVE (NEGATIVE)
[2021-07-08 15:30] LABS: CALCIUM 7.7 mg/dL (8.5-10.1); CREATININE 1.1 mg/dL (0.7-1.3); GFR 65.8; POTASSIUM 3.7 mmol/L (3.5-5.1)
[2021-07-08 15:43] LABS: ALBUMIN 2.6 g/dL (3.4-5.0); ALBUMIN/GLOBULIN RATIO 0.7 (1.0-1.7); TOTAL BILIRUBIN 0.7 mg/dL (0.2-1.0); TOTAL PROTEIN 6.2 g/dL (6.4-8.2)
[2021-07-08] MEDS ORDERED: ONDANSETRON PF 4 MG/2 ML VIAL. IVP PRN (17:00)
[2021-07-08] MEDS ORDERED: ACETAMINOPHEN 325 MG TABLET PO PRN (17:00)
[2021-07-08] MEDS ORDERED: AZITHROMYCIN 500 MG in IV NORMAL SALINE 250ML 250 ML IV ONE (17:00)
[2021-07-08] MEDS ORDERED: AZITHROMYCIN 500 MG VIAL. IV ONE (17:42)
[2021-07-08] MEDS ORDERED: IV NORMAL SALINE 250ML 250 ML ONE (17:42)
[2021-07-08] MEDS ORDERED: cefTRIAXone SODIUM 1 GM VIAL ONE (17:42)
[2021-07-08] MEDS ORDERED: IV NORMAL SALINE 50ML 50 ML ONE (17:42)
[2021-07-08] MEDS ORDERED: MORPHINE SULFATE 2 MG/ML DISP.SYRIN. IV PRN ×2 (18:45→20:00)
[2021-07-08] MEDS ORDERED: PIP/TAZO PER PHARMACY MC PRN (18:45)
[2021-07-08] MEDS ORDERED: HYDROcodone/APAP 5/325MG 1 TAB TABLET PO PRN (18:45)
[2021-07-08 19:13] VITALS: BP 122/92
[2021-07-08] MEDS: IV NORMAL SALINE 1,000ML 1,000 ML IV SCH (20:00)
[2021-07-08] MEDS ORDERED: IPRATRPIUM/ALBUTEROL 0.5/2.5MG 3 ML NEBU. NEB SCH (20:00)
--- NOTE | 2021-07-08 20:28 | HP ---
DATE OF SERVICE: 07/08/2021 ADMIT DATE: 07/08/2021 HISTORY OF PRESENT ILLNESS: A 71-year-old gentleman recently had been treated for COVID-19, had been doing reasonably well, went home, apparently was not staying on his oxygen and had not been taking his home medications as was prescribed for him. In any case, the patient had a relapse and continued to have problems with breathing, was brought in through the Emergency Room and was noted to be in acute respiratory failure. He is on 15 liters per rebreather. The patient in turn was brought into the hospital where he was restarted on Decadron, aggressive pulmonary toilet, IV antibiotic therapy and Lovenox. The patient continued to be monitored carefully here and make further decisions about his disposition as far as any further treatment on his pulmonary status. PAST MEDICAL HISTORY: Tonsillectomy, cardiac disorders, heart attack, hypercholesterolemia, respiratory disorders, COVID back in 06/2021, he was not immunized. Pneumococcal vaccination refused. FAMILY HISTORY: Suicide. ALLERGIES: ADVERSE REACTION TO MILK. SOCIAL HISTORY: The patient has about a 40-50 pack year history of smoking. Denies hard drug use or alcohol use of any sort. He is a full code. REVIEW OF SYSTEMS: Increased shortness of breath. Denies chest pain per se. Denies any nausea, vomiting, melena, hematochezia or hematemesis. Neurologically, the patient is alert and oriented x 3, baseline there, although he is very groggy from his lack of oxygen. PHYSICAL EXAMINATION: GENERAL: This is an ill-appearing white male, in moderate amount of distress. VITAL SIGNS: Blood pressure 120/92, respiratory rate 22, pulse in the 80s. He is presently running a temperature of 99.6. Initially, he was room air of 80 and about 15 liters Venturi mask up to 93 and we will continue to monitor this with aggressive pulmonary toilet, if possible. If he is negative, then we can start using situation such as breathing treatments would be most helpful. In turn, the patient is an ill-appearing white male with Venturi mask on. HEENT: Head, atraumatic, normocephalic. Eyes: PERRLA without jaundice. Mouth and throat were normal. NECK: Supple. LUNGS: Diminished, poor movement of air, basically in the right side. CARDIOVASCULAR: Regular sinus rhythm. ABDOMEN: Soft, nontender. No rebounding. No guarding. Positive bowel sounds. No hepatosplenomegaly noted. EXTREMITIES: No clubbing, cyanosis, nor edema. NEUROLOGIC: The patient was alert and oriented x 3, although he is having difficulty speaking with his face mask on. He is still alert. LABORATORY DATA: The patient's labs from the Emergency Room where he came through, x-rays there demonstrated multifocal right greater than left interstitial and alveolar infiltrates. Stable cardiac silhouette. Labs show white count of 13, hemoglobin and hematocrit of 14 and 44. ____ 139/3.7, albumin 2.6, glucose 148. Influenza negative. IMPRESSION: Bilateral lobe pneumonia, recent history of COVID-19, nonvaccinated for COVID-19, severe protein malnutrition, acute respiratory distress, hypoxia, elevated BNP, probably there is secondary strain on the heart from the pneumonic process. Troponins have been negative. AURORA/JACOB/ALICE DR: AURORA/ligia TID: [id number]
[2021-07-08 21:54] LABS: BILIRUBIN,URINE NEG (NEG); CLARITY,URINE CLEAR; COLOR,URINE YELLOW; GLUCOSE,URINE >=1000 mg/dL (NEG)
[2021-07-08 21:55] LABS: BACTERIA,URINE 0 /HPF (0-FEW); NITRITE,URINE NEG (NEG); RBC,URINE RARE /HPF (0-2); SQUAMOUS EPITHELIAL CELL,UR OCC /LPF; WBC,URINE OCC /HPF (0-4)
[2021-07-08] MEDS: CARVEDILOL 6.25 MG TABLET PO SCH (22:52)
[2021-07-08] MEDS: ENOXAPARIN 40 MG/0.4 ML SYRINGE. SQ SCH (22:54)
[2021-07-08] MEDS: DEXAMETHASONE SOD PHOS 10 MG/ML VIAL. IV SCH (22:54)
[2021-07-08 23:00] VITALS: BP 117/67
[2021-07-09] MEDS: PIPERACILLIN/TAZOBACTAM 3.375 GM in IV NORMAL SALINE 50ML 50 ML IV SCH ×5 (01:45→22:54)
--- NOTE | 2021-07-09 04:17 | EKG ---
[address] [address] Test Date: 2021-07-08 Test Time: 14:12:08 Pat Name: DEMI ANDINO Department: Room: 121 A Gender: M [employer] Supervisor: CARMEN : 1950 Requested By: GARDENIA CAPPS Order Number: [id number] Reading MD: Uriel Gonzalez Measurements Intervals [place] Rate: 93 P: 28 [place]: 146 QRS: 2 QRSD: 96 T: 59 QT: 346 QTc: 433 Interpretive Statements SINUS RHYTHM QRS(T) CONTOUR ABNORMALITY CONSISTENT WITH POSSIBLE OLD INFERIOR INFARCT Electronically Signed On 07-10-2021 9:51:59 SPRAYER MACHINE by Uriel Gonzalez
[2021-07-09 06:21] VITALS: BP 132/81
[2021-07-09] MEDS: IV NORMAL SALINE 1,000ML 1,000 ML IV SCH ×2 (06:32→13:00)
[2021-07-09] MEDS: DEXAMETHASONE SOD PHOS 10 MG/ML VIAL. IV SCH ×4 (06:32→22:55)
[2021-07-09 06:45] LABS: GFR 73.5; POTASSIUM 3.9 mmol/L (3.5-5.1)
[2021-07-09 06:58] LABS: BASO % 0 % (0-3); EOS % 0 % (0-3); HEMATOCRIT 39.8 % (39.0-53.0); HEMOGLOBIN 13.4 g/dL (13.0-17.5); LYMPH # 0.7 x10^3/uL (1.0-4.8); LYMPH % 8 % (24-48); MEAN CORPUSCULAR HEMOGLOBIN 32 pg (25-35); MEAN CORPUSCULAR HGB CONC 34 g/dL (31-37); MEAN CORPUSCULAR VOLUME 95 fL (79-100); MONO # 0.4 x10^3/uL (0.0-1.1); MONO % 4 % (0-9); NEUT # 8.1 x10^3uL (1.8-7.7); NEUT % 88 % (31-73); PLATELET COUNT 169 x10^3/uL (140-400); RED BLOOD COUNT 4.18 x10^6/uL (4.30-5.70); RED CELL DISTRIBUTION WIDTH 13.3 % (11.5-14.5); WHITE BLOOD COUNT 9.2 x10^3/uL (4.0-11.0)
[2021-07-09] MEDS: ASPIRIN ENTERIC COATED 81 MG TABLET.DR. PO SCH (08:10)
[2021-07-09] MEDS: LISINOPRIL 5 MG TABLET. PO SCH (08:10)
[2021-07-09] MEDS: IPRATROPIUM/ALBUTEROL 20/100mcg/INH INHALER. INH SCH ×4 (08:11→20:49)
[2021-07-09 10:39] VITALS: BP 129/73
[2021-07-09 15:25] VITALS: BP 127/78
[2021-07-09 19:00] VITALS: BP 114/76
[2021-07-09] MEDS: CARVEDILOL 6.25 MG TABLET PO SCH (20:48)
[2021-07-09] MEDS: ENOXAPARIN 40 MG/0.4 ML SYRINGE. SQ SCH (20:48)
--- NOTE | 2021-07-09 20:51 | PN ---
SUBJECTIVE: A 71-year-old gentleman in with acute exacerbation of chronic obstructive pulmonary disease secondary to bronchitis, pneumonia. The patient is hypoxic, severe shortness of breath. The patient has bilateral lobe pneumonia, recent history of chronic obstructive pulmonary disease, not vaccinated, has been doing reasonably well in the hospital, went home, did not use his oxygen or breathing machine or prednisone as was directed, not able to really take care of himself at home, had a relapse. He is doing much better, he is off his Venturi mask today and breathing much easier somewhere along the line, he is just on a nonrebreather mask at 92%. OBJECTIVE: VITAL SIGNS: Blood pressure 127/78, respiratory rate 22, pulse 92. He is afebrile. DIAGNOSTIC DATA: Chest x-ray showed pneumonic processes. We will continue with IV antibiotic therapy, aggressive pulmonary toilet, steroids and Lovenox. IMPRESSION AND PLAN: Bilateral lobe pneumonia; recent history of COVID-19, nonvaccinated; severe protein malnutrition; acute respiratory failure; hypoxia; elevated BNP. Continue to monitor the patient accordingly, make further adjustment on his medications. VALARIE DR: Megan TID: [id number]
[2021-07-09 23:14] VITALS: BP 122/69
[2021-07-10] MEDS: DEXAMETHASONE SOD PHOS 10 MG/ML VIAL. IV SCH ×4 (06:00→23:22)
[2021-07-10] MEDS: PIPERACILLIN/TAZOBACTAM 3.375 GM in IV NORMAL SALINE 50ML 50 ML IV SCH ×4 (06:00→23:22)
[2021-07-10 06:20] VITALS: BP 127/68
[2021-07-10] MEDS: LACTOBACILLUS RHAMNOSUS GG 1 CAPSULE. PO SCH ×2 (08:28→20:11)
[2021-07-10] MEDS: LISINOPRIL 5 MG TABLET. PO SCH (08:29)
[2021-07-10] MEDS: IPRATROPIUM/ALBUTEROL 20/100mcg/INH INHALER. INH SCH (08:29)
[2021-07-10] MEDS: BUDESONIDE 0.5 MG/2 ML NEBU NEB SCH ×2 (08:29→18:25)
[2021-07-10] MEDS: ASPIRIN ENTERIC COATED 81 MG TABLET.DR. PO SCH (08:30)
[2021-07-10 11:17] VITALS: BP 123/73
[2021-07-10] MEDS: ASCORBIC ACID 1,000 MG TABLET PO SCH (14:00)
[2021-07-10] MEDS: CHOLECALCIFEROL (VITAMIN D3) 1,000 UNIT TABLET PO SCH (14:05)
[2021-07-10] MEDS: ZINC SULFATE 220 MG CAPSULE. PO SCH (14:07)
[2021-07-10] MEDS ORDERED: IPRATRPIUM/ALBUTEROL 0.5/2.5MG 3 ML NEBU. NEB SCH (16:00)
[2021-07-10 16:22] VITALS: BP 138/82
[2021-07-10] MEDS ORDERED: IPRATRPIUM/ALBUTEROL 0.5/2.5MG 3 ML NEBU. NEB PRN (17:15)
[2021-07-10 19:00] VITALS: BP 117/71
[2021-07-10] MEDS ORDERED: CALCIUM CARBONATE 500 MG TAB.CHEW PO PRN (19:00)
[2021-07-10] MEDS: ENOXAPARIN 40 MG/0.4 ML SYRINGE. SQ SCH (20:11)
[2021-07-10] MEDS: CARVEDILOL 6.25 MG TABLET PO SCH (20:12)
[2021-07-10] MEDS: FAMOTIDINE 20 MG TABLET PO SCH (20:12)
[2021-07-10 23:45] VITALS: BP 115/71
[2021-07-11] VITALS (7 sets, daily range): BP systolic 97–140; BP diastolic 69–78
--- NOTE | 2021-07-11 00:03 | PN ---
SUBJECTIVE: A 71-year-old male admitted with COPD exacerbation with pneumonia, recent, last month had some history of COVID, although he seems to be doing a little better, had been off and on rebreather at 15 liters, 94. Venturi mask now is on room air at 92. OBJECTIVE: VITAL SIGNS: Blood pressure 138/82, respiratory rate 22, pulse 65, afebrile. GENERAL: The patient is alert and oriented. LUNGS: Clear. CARDIOVASCULAR: Regular sinus rhythm. ABDOMEN: Soft, nontender, no rebound or guarding. Positive bowel sounds. No hepatosplenomegaly noted. IMPRESSION: Bilateral lobe pneumonia, exacerbation of chronic obstructive pulmonary disease secondary to a pneumonic process as well as that of a recent history of COVID-19. We will make further evaluation on him as indicated. AURORA/MARTHA/TERESITA DR: AURORA/ligia TID: [id number]
[2021-07-11] MEDS: DEXAMETHASONE SOD PHOS 10 MG/ML VIAL. IV SCH ×2 (05:08→20:34)
[2021-07-11] MEDS: PIPERACILLIN/TAZOBACTAM 3.375 GM in IV NORMAL SALINE 50ML 50 ML IV SCH (05:08)
[2021-07-11 06:13] LABS: BASO % 0 % (0-3); EOS % 0 % (0-3); HEMATOCRIT 38.3 % (39.0-53.0); HEMOGLOBIN 12.9 g/dL (13.0-17.5); LYMPH # 0.4 x10^3/uL (1.0-4.8); LYMPH % 4 % (24-48); MEAN CORPUSCULAR HEMOGLOBIN 32 pg (25-35); MEAN CORPUSCULAR HGB CONC 34 g/dL (31-37); MEAN CORPUSCULAR VOLUME 95 fL (79-100); MONO # 0.7 x10^3/uL (0.0-1.1); MONO % 6 % (0-9); NEUT % 89 % (31-73); PLATELET COUNT 194 x10^3/uL (140-400); RED BLOOD COUNT 4.06 x10^6/uL (4.30-5.70); RED CELL DISTRIBUTION WIDTH 13.1 % (11.5-14.5); WHITE BLOOD COUNT 11.1 x10^3/uL (4.0-11.0)
[2021-07-11] MEDS: BUDESONIDE 0.5 MG/2 ML NEBU NEB SCH ×2 (09:35→20:34)
[2021-07-11] MEDS: ZINC SULFATE 220 MG CAPSULE. PO SCH (09:36)
[2021-07-11] MEDS: LISINOPRIL 5 MG TABLET. PO SCH (09:37)
[2021-07-11] MEDS: CHOLECALCIFEROL (VITAMIN D3) 1,000 UNIT TABLET PO SCH (09:37)
[2021-07-11] MEDS: FAMOTIDINE 20 MG TABLET PO SCH ×2 (09:38→20:34)
[2021-07-11] MEDS: LACTOBACILLUS RHAMNOSUS GG 1 CAPSULE. PO SCH ×2 (09:38→20:34)
[2021-07-11] MEDS: ASCORBIC ACID 1,000 MG TABLET PO SCH (09:38)
[2021-07-11] MEDS: ASPIRIN ENTERIC COATED 81 MG TABLET.DR. PO SCH (09:38)
[2021-07-11] MEDS: ZINC OXIDE/COD LIVER OIL 40% TOPICAL OINTMENT 56GM TUBE. TP SCH ×2 (14:00→21:00)
--- NOTE | 2021-07-11 15:12 | RAD ---
EXAMINATION: XR CHEST 1V CLINICAL HISTORY: Shortness of breath COMPARISON: 07/08/2021 FINDINGS/ IMPRESSION: Similar to slightly increased bilateral interstitial and multifocal alveolar opacities. There is othe rwise no evidence of additional significant interval change when accounting for differences in patien t positioning and imaging technique. Electronically signed by: Roderick Banegas DO (07/11/2021 3:09 PM) [id number]
[2021-07-11] MEDS: ENOXAPARIN 40 MG/0.4 ML SYRINGE. SQ SCH (20:34)
[2021-07-12] VITALS (21 sets, daily range): BP systolic 120–143; BP diastolic 67–83
--- NOTE | 2021-07-12 02:14 | PN ---
DATE: 07/11/2021 SUBJECTIVE: A 71-year-old male who came in with relapse of pneumonia and previous COVID-19 and the patient has been having more and more difficulty breathing. He is on a nonrebreather, although he says he feels a little better today. He is on 15 liters nonrebreather mask. He has been transferred over to the ICU. OBJECTIVE: VITAL SIGNS: Blood pressure anywhere from 97/70-130/80, respiratory rate 22, pulse 90. GENERAL: He is afebrile. He is complaining of some diarrhea, we will check him for C. diff. LUNGS: Diminished throughout, poor movement of air. CARDIOVASCULAR: Regular sinus rhythm, S1, S2. ABDOMEN: Soft, nontender. EXTREMITIES: No clubbing, cyanosis or edema. NEUROLOGIC: The patient was alert and oriented x 3. LABORATORY DATA: Show white count of 11, hemoglobin 12 and 38. Chemistries: 139, 3.9, 25, and 1. Blood sugar 148. The patient continued to be monitored carefully, make further evaluation on him as indicated with close monitoring in the ICU where he will stay on Levaquin and dexamethasone twice daily, aggressive breathing treatments by nebulizer, Lovenox and make further assessment. IMPRESSION: Acute respiratory failure, post COVID-19 bilateral lobe pneumonia. PLAN: As above. AURORA/SHI/ADILSON DR: AURORA/ligia TID: [id number]
[2021-07-12] MEDS: DEXAMETHASONE SOD PHOS 10 MG/ML VIAL. IV SCH ×2 (08:27→20:56)
[2021-07-12] MEDS: BUDESONIDE 0.5 MG/2 ML NEBU NEB SCH ×2 (08:27→19:30)
[2021-07-12] MEDS: ASPIRIN ENTERIC COATED 81 MG TABLET.DR. PO SCH (08:27)
[2021-07-12] MEDS: ZINC SULFATE 220 MG CAPSULE. PO SCH (08:28)
[2021-07-12] MEDS: CHOLECALCIFEROL (VITAMIN D3) 1,000 UNIT TABLET PO SCH (08:28)
[2021-07-12] MEDS: LISINOPRIL 5 MG TABLET. PO SCH (08:28)
[2021-07-12] MEDS: FAMOTIDINE 20 MG TABLET PO SCH ×2 (08:29→20:57)
[2021-07-12] MEDS: LACTOBACILLUS RHAMNOSUS GG 1 CAPSULE. PO SCH ×2 (08:29→20:57)
[2021-07-12] MEDS: ZINC OXIDE/COD LIVER OIL 40% TOPICAL OINTMENT 56GM TUBE. TP SCH ×3 (08:29→20:57)
[2021-07-12] MEDS: ASCORBIC ACID 1,000 MG TABLET PO SCH (08:32)
[2021-07-12] MEDS: ENOXAPARIN 40 MG/0.4 ML SYRINGE. SQ SCH (20:56)
--- NOTE | 2021-07-12 23:04 | PN ---
SUBJECTIVE: The patient in with COVID-19 pneumonia. The patient is making fair, but steady progress. The patient is still very weak and is recovering, still requiring approximately 10-15 liters on high flow nasal cannula. OBJECTIVE: VITAL SIGNS: Blood pressure 143/67, respiratory rate 20, pulse 90. GENERAL: He is afebrile. LUNGS: Diminished, but basically clear. CARDIOVASCULAR: Stable. ABDOMEN: Soft, nontender. IMPRESSION AND PLAN: COVID-19 pneumonia with acute respiratory failure. Continue on present drug regimen here in the ICU. Continued rehab, may need specialty hospital. AURORA/LULA DR: Megan TID: [id number]
[2021-07-13] VITALS (11 sets, daily range): BP systolic 96–147; BP diastolic 56–85
[2021-07-13] MEDS: ZINC OXIDE/COD LIVER OIL 40% TOPICAL OINTMENT 56GM TUBE. TP SCH ×2 (09:00→14:00)
[2021-07-13] MEDS ORDERED: BUDESONIDE 3 MG CAP.ER.24H. PO SCH (09:30)
[2021-07-13] MEDS ORDERED: LOPERAMIDE 2 MG CAPSULE PO PRN (09:45)
[2021-07-13] MEDS: ASPIRIN ENTERIC COATED 81 MG TABLET.DR. PO SCH (10:22)
[2021-07-13] MEDS: LACTOBACILLUS RHAMNOSUS GG 1 CAPSULE. PO SCH (10:22)
[2021-07-13] MEDS: CHOLECALCIFEROL (VITAMIN D3) 1,000 UNIT TABLET PO SCH (10:23)
[2021-07-13] MEDS: LISINOPRIL 5 MG TABLET. PO SCH (10:23)
[2021-07-13] MEDS: ZINC SULFATE 220 MG CAPSULE. PO SCH (10:23)
[2021-07-13] MEDS: BUDESONIDE 0.5 MG/2 ML NEBU NEB SCH (10:24)
[2021-07-13] MEDS: DEXAMETHASONE SOD PHOS 10 MG/ML VIAL. IV SCH (10:25)
[2021-07-13] MEDS ORDERED: FAMOTIDINE 20 MG TABLET PO SCH (21:00)
--- NOTE | 2021-07-14 10:00 | PN ---
DATE: 07/13/2021 SUBJECTIVE: The patient is a 71-year-old male with relapse of COVID-19 pneumonia. The patient in acute, chronic respiratory failure, noncompliance, has not been using his oxygen at home as well as directed. In any case, the patient has been in the ICU. He is doing a little better, although he gets markedly desaturated with any type of movement, will need chronic care and will be sent on to [facility] for further evaluation there. The patient in turn still very weak, tired as it is noted. OBJECTIVE: VITAL SIGNS: Blood pressure 120/70, respiratory rate 18, pulse 94. He is afebrile at 97.5. He is still on 15 liters per nasal cannula at 94%. GENERAL: The patient otherwise is a delightful gentleman. He is alert and oriented. LUNGS: Diminished, poor movement of air. CARDIOVASCULAR: Regular sinus rhythm, tachy at best. ABDOMEN: Soft, nontender. EXTREMITIES: No clubbing, cyanosis, nor edema. NEUROLOGIC: Intact for the most part. Chest x-ray still shows slightly increased bilateral interstitial multifocal alveolar opacities, probably stable there. The patient is also having severe diarrhea, try to cut him off on some of his medication such as vitamin C that might be causing some of the problems. Otherwise, the patient in turn is making fairly good progress overall and will continue to be monitored carefully. He may need to be transferred as noted to [facility] for further rehabilitation therapy. IMPRESSION: Acute respiratory failure, post COVID-19 pneumonia, bilateral lobe pneumonia, emphysema, unvaccinated, severe protein malnutrition, hypoxia, elevated BNP. PLAN: Continue to monitor the patient accordingly. AURORA/VALERIA/ALICE DR: AURORA/ligia TID: [id number]
--- NOTE | 2021-07-27 21:29 | DS ---
DATE OF DISCHARGE: 07/13/2021 HOSPITAL COURSE: A 71-year-old male came in, was recently treated for COVID-19. However, the patient became increasingly ill and apparently had been taking care of his medications, did not take the oxygen as was prescribed for him and other medications. The patient relapsed. He came in through the Emergency Room on 15 liters per rebreather. The patient was admitted for bilateral lobe pneumonia, recent history of COVID-19, not vaccinated for COVID-19, severe protein malnutrition. The patient lives by himself and apparently had not been taking adequate care and was not allowing home health to visit him. The patient was placed on aggressive antibiotic therapy, aggressive pulmonary toilet and the like. The patient continued to be monitored carefully. He was moved to the ICU, placed on Levaquin, dexamethasone twice daily, aggressive breathing treatments with nebulizer and Lovenox of course. The patient made very minimal, if any, progress. He became extremely weakened overall and was having difficulty breathing. Calls were made to [facility] and it was decided to transfer the patient for further close monitoring by Pulmonary consult not available at this facility. Chest x-ray showed increased bilateral interstitial multifocal alveolar pneumonia. The patient's labs showed a white count of 11, hemoglobin 12 and hematocrit 38. Sodium and potassium 139 and 3.9, BUN and creatinine 25 and 1. Sugar is 140. Severe protein malnutrition, albumin of 2.6. The patient as noted remains positive for COVID-19 PCR. He was transferred to [facility] in the care of Pulmonology and hospitalist there. IMPRESSION: Complications of COVID-19 pneumonia, bilateral lobe pneumonia, noncompliance, severe protein malnutrition, severe acute respiratory hypoxia and respiratory failure. The patient was transferred via EMS to [facility]. VALARIE DR: Megan TID: [id number]
== END 2021-07-13 16:50 | disposition short-term general hospital (02) | DRG 871 ==
LOC: ER 13:49 → 1 SOUTH 16:46 → ICU 07-11 17:14
PROVIDERS: ADMIT Family Medicine; ATTEND Family Medicine
PROC: 5A0935A Assistance with Respiratory Ventilation, Less than 24 Consecutive Hours, High Flow/Velocity Cannula (ICD-10-PCS; principal; 2021-07-12)
PROC: 5A0935A Assistance with Respiratory Ventilation, Less than 24 Consecutive Hours, High Flow/Velocity Cannula (ICD-10-PCS; 2021-07-13)
DX: A41.89 Other specified sepsis (principal); E43 Unspecified severe protein-calorie malnutrition; J96.21 Acute and chronic respiratory failure with hypoxia; U07.1 COVID-19; J12.82 Pneumonia due to coronavirus disease 2019; E78.00 Pure hypercholesterolemia, unspecified; I10 Essential (primary) hypertension; I25.10 Atherosclerotic heart disease of native coronary artery without angina pectoris; I25.2 Old myocardial infarction; J43.9 Emphysema, unspecified; Z87.891 Personal history of nicotine dependence; Z91.19 Patient's noncompliance with other medical treatment and regimen; Z91.011 Allergy to milk products; Z68.24 Body mass index [BMI] 24.0-24.9, adult; Z28.3 Underimmunization status; Z79.899 Other long term (current) drug therapy
CPT/HCPCS: 36415; 36600; 71045; 80048; 80053; 81001; 82803; 83605; 83880; 84145; 84484; 85025; 85610; 87040; 87493; 87804; 93005; 94640; 96374; J0456; J0696; J1100; J1650; J1956; J2270; J2543; J7040; J7050; U0003; 99285-25; J7030

== ENCOUNTER → 2021-10-12 | Outpatient (CLI) | payer MEDICARE ==
[2021-07-13 16:00] VITALS: BP 129/78
--- NOTE | 2021-10-12 14:57 | RAD ---
Examination: CT chest without contrast HISTORY: History of pulmonary nodule, pneumonia, Covid COMPARISON: 06/15/2014 TECHNIQUE: Axial CT images of chest were performed without contrast. Coronal and sagittal reformats a re performed Exposure: One or more of the following individualized dose reduction techniques were utilized for thi s examination: 1. Automated exposure control 2. Adjustment of the mA and/or kV according to patient size 3. Use of iterative reconstruction technique FINDINGS: The visualized thyroid gland grossly appears unremarkable. Central airways are patent. Heart size kristen ssly appears unremarkable. Small pericardial effusion is identified. Coronary artery calcifications i dentified. Mild aortic atherosclerosis. No radiologically significant mediastinal lymphadenopathy. Mo derate prominent bilateral interstitial lung markings identified in the bilateral lungs with bilatera l lung emphysematous changes. There are multiple cavitary nodules identified in the right upper lobe of the lung posteriorly with the largest measuring 1.5 cm. Multiple cystic structures identified in t he liver the largest measuring 2.1 cm similar to prior exam. The spleen, adrenals grossly appears unr emarkable. Partially Visualized small gallstones within the gallbladder. Moderate degenerative changes thoracic spine. Mild compression change midthoracic vertebral bodies at T2, T5 vertebral levels. IMPRESSION: 1. Multiple cavitary nodules identified in the right upper lobe of the lung posteriorly with the lar gest measuring 1.5 cm could be infectious or inflammatory etiology or neoplasm. Consider further eval uation with PET/CT or non-contrast chest CT at 3-6 months. 2. Moderate prominent bilateral interstitial lung markings identified in the bilateral lungs with bi lateral lung emphysematous changes. 3. Small pericardial effusion. 4. Coronary artery calcifications. 5. Multiple cystic structures identified in the liver the largest measuring 2.1 cm similar to prior exam likely cysts.. 6. Cholelithiasis. Electronically signed by: Mehdi John MD (10/12/2021 2:55 PM) [id number]
== END ==
LOC: CT 13:22
PROVIDERS: ATTEND Family Medicine
DX: R91.8 Other nonspecific abnormal finding of lung field (principal); J43.9 Emphysema, unspecified; I31.3 Pericardial effusion (noninflammatory); I25.10 Atherosclerotic heart disease of native coronary artery without angina pectoris; K76.89 Other specified diseases of liver; K80.20 Calculus of gallbladder without cholecystitis without obstruction; I70.0 Atherosclerosis of aorta; M47.814 Spondylosis without myelopathy or radiculopathy, thoracic region; Z86.16 Personal history of COVID-19
CPT/HCPCS: 71250